=== PATIENT | male | born 1960 | race Caucasian/White ===

== ENCOUNTER 2018-11-05 03:50 | Emergency (ER) | payer OTHER ==
[~2018-11-05] VITALS: Ht 177.8 cm; Wt 90.7 kg
[~2018-11-05 03:50] MED LIST: KEFLEX PO; SULF1TAB44 PO
--- NOTE | 2018-11-05 04:35 | NUR ---
Pt refusing saline lock & blood draw. notified.
[2018-11-05] MEDS ORDERED: CEphaleXIN 500 MG CAPSULE ONE (05:00)
[2018-11-05] MEDS ORDERED: HYDROCODONE/APAP 5-325MG TABLET ONE (05:00)
[2018-11-05] MEDS: SULFAMETH/TRIMETH 800/160 MG TABLET PO ONE (05:01)
[2018-11-05] MEDS ORDERED: SULFAMETH/TRIMETH 800/160 MG TABLET ONE (05:01)
[2018-11-05] MEDS: PIPERACILLIN SODIUM/TAZOBACTAM 3.375 G in IV DEXTROSE 5% 50 ML IV ONE (05:02)
[2018-11-05] MEDS: HYDROCODONE/APAP 5-325MG TABLET PO ONE (05:02)
[2018-11-05] MEDS: CEphaleXIN 500 MG CAPSULE PO ONE (05:02)
[2018-11-05] MEDS: ONDANSETRON 4 MG/2 ML VIAL IV ONE (05:03)
[2018-11-05] MEDS: VANCOMYCIN IV 1,000 MG in IV DEXTROSE 5% 250 ML IV ONE (05:03)
[2018-11-05] MEDS: MORPHINE SULFATE 4 MG/1 ML DISP.SYRIN IV ONE (05:03)
[2018-11-05] MEDS: IV NORMAL SALINE 1000 ML BAG IV ONE (05:03)
--- NOTE | 2018-11-05 05:31 | NUR ---
Patient does not wish to proceed with medical care recommended by Dr. Man. Patient given information related to possible complications, up to and including , which could occur as a result of leaving the hospital at this time. Patient verbalizes understanding of risks involved due to leaving against medical advice. Patient has signed AMA form.
[2018-11-05 05:35] VITALS: BP 122/88
== END 2018-11-05 05:36 | disposition left against medical advice (07) ==
LOC: ER 03:57
DX: L03.113 Cellulitis of right upper limb (principal); Z79.2 Long term (current) use of antibiotics; Z79.899 Other long term (current) drug therapy
CPT/HCPCS: 73130; A4663; J7030